=== PATIENT | male | born 1975 | race Caucasian/White ===

== ENCOUNTER 2018-11-13 12:42 | Emergency (ER) | payer BC ==
[2018-11-13 12:52] VITALS: BP 173/87
--- NOTE | 2018-11-13 13:22 | ER Document Report ---
ED Medical Screen (RME) - General Chief Complaint: Fall Injury Stated Complaint: FALL/FACIAL LACERATIONS Time Seen by Provider: 11/13/18 13:18 Mode of Arrival: Ambulatory Information source: Patient Notes: 42-year-old male presented to ED for laceration to the left side of his face just beside his eye. He states he got up this morning and tripped over some close said the dresser hit his forehead on the dresser causing a laceration. He states it was about 730 this morning. He is alert oriented respirations regular and unlabored denies any loss of consciousness no nausea or vomiting. Bleeding is under control I have greeted and performed a rapid initial assessment of this patient. A comprehensive ED assessment and evaluation of the patient, analysis of test results and completion of medical decision making process will be conducted by an additional ED providers. Dictation of this chart was performed using voice recognition software; therefore, there may be some unintended grammatical errors. TRAVEL OUTSIDE OF THE [place] IN LAST 30 DAYS: No - Related Data Allergies/Adverse Reactions: Penicillins Allergy (Verified 11/13/18 12:46) Sulfa (Sulfonamide Antibiotics) Allergy (Verified 11/13/18 12:46) Past Medical History - Social History Frequency of alcohol use: Social Drug Abuse: None Renal/ Medical History: Denies: Hx Peritoneal Dialysis Physical Exam - Vital signs Vitals: Temp Pulse Resp BP Pulse Ox 98 F 82 18 173/87 H 98 11/13/18 12:51 11/13/18 12:51 11/13/18 12:51 11/13/18 12:51 11/13/18 12:51 Course - Vital Signs Vital signs: Temp Pulse Resp BP Pulse Ox 98 F 82 18 173/87 H 98 11/13/18 12:51 11/13/18 12:51 11/13/18 12:51 11/13/18 12:51 11/13/18 12:51
[2018-11-13] MEDS ORDERED: LIDOCAINE 1% INJ-PF (10 MG/ML) 30 ML SDV INJ ONE (14:54)
[2018-11-13] MEDS ORDERED: ACETAMINOPHEN 325 MG TABLET PO ONE (14:54)
[2018-11-13] MEDS ORDERED: LIDOCAINE 1.5%/EPINEPHRINE INJ-PF 30 ML SDV INJ ONE (14:56)
--- NOTE | 2018-11-13 15:04 | ER Document Report ---
HPI - HPI Patient complains to provider of: Laceration Time Seen by Provider: 11/13/18 13:18 Pain Level: 3 Context: Patient is a 43-year-old male presents to the emergency department for a laceration over his left eyebrow. Patient states this morning he tripped and fell onto his dresser. States he fell and hit his head on his dresser. Patient denies any loss of consciousness or vomiting. Denying any blurred vision or change in vision. Patient states is a minor headache but it more so hurts right over the cut. Patient states his last tetanus immunization was a year ago Past medical history: Hypertension, gout, anxiety Medications: Lisinopril, allopurinol, Soma, Xanax Allergies: Sulfa, penicillin - DERM Skin Color: Normal Past Medical History - General Information source: Patient - Social History Smoking Status: Never Smoker Frequency of alcohol use: Social Drug Abuse: None Family History: Reviewed & Not Pertinent Patient has suicidal ideation: No Patient has homicidal ideation: No Renal/ Medical History: Denies: Hx Peritoneal Dialysis Vertical Provider Document - CONSTITUTIONAL Agree With Documented VS: Yes Notes: GENERAL: Alert, interacts well. No acute distress. HEAD: Normocephalic, pain palpation left zygomatic arch, erythema noted EYES: Pupils equal, round, and reactive to light. Extraocular movements intact and painless. No proptosis noted ENT: Oral mucosa moist, tongue midline. Nares patent, no nasal septal hematoma, TM's intact, no hemotympanum noted bilaterally NECK: Full range of motion. Supple. Trachea midline. LUNGS: Clear to auscultation bilaterally, no wheezes, rales, or rhonchi. No respiratory distress. HEART: Regular rate and rhythm. No murmur ABDOMEN: Soft, non-tender. Non-distended. Bowel sounds present in all 4 quadrants. EXTREMITIES: Moves all 4 extremities spontaneously. No edema, normal radial and dorsalis pedis pulses bilaterally. No cyanosis. BACK: no cervical, thoracic, lumbar midline tenderness. No saddle anesthesia, normal distal neurovascular exam. NEUROLOGICAL: Alert and oriented x3. Normal speech. cranial nerves II through XII grossly intact PSYCH: Normal affect, normal mood. SKIN: Warm, dry, normal turgor. Patient does have bruising around the left eye, no swelling of upper or lower lid noted. Laceration x2 noted, see procedure note. - INFECTION CONTROL TRAVEL OUTSIDE OF THE [place] IN LAST 30 DAYS: No Course - Re-evaluation Re-evalutation: 11/13/18 15:01 Laceration repaired with no complications. Patient tolerated well. See procedure note for details. No antibiotics needed at this time. Patient states he is up-to-date on immunizations. Patient stable for discharge. 11/13/18 16:[address] 11/13/18 15:42 IMPRESSION: Left preseptal orbital soft tissue swelling. No facial fracture or left globe injury. No retrobulbar hematoma - Vital Signs Vital signs: Temp Pulse Resp BP Pulse Ox 98 F 82 18 173/87 H 98 11/13/18 12:51 11/13/18 12:51 11/13/18 12:51 11/13/18 12:51 11/13/18 12:51 Procedures - Laceration/Wound Repair left eyebrow Wound length (cm): 3 Wound's Depth, Shape: Superficial, Linear Laceration pre-procedure: Sterile PPE donned, Sterile drapes applied, Shur-Clens applied Anesthetic type: 1% Lidocaine w/epi Volume Anesthetic (mLs): 5 Wound explored: Clean Irrigated w/ Saline (mLs): 500 Wound Debrided: Minimal Wound Repaired With: Sutures Suture Size/Type: 5:0, Vicryl Number of Sutures: 4 Post-procedure wound care: Sterile dressing applied Post-procedure NV exam normal: Yes Complications: No left forehead Wound length (cm): 1 Wound's Depth, Shape: Superficial, Linear Laceration pre-procedure: Sterile PPE donned Anesthetic type: 1% Lidocaine w/epi Volume Anesthetic (mLs): 2 Wound explored: Clean Irrigated w/ Saline (mLs): 500 Wound Debrided: Minimal Wound Repaired With: Sutures Suture Size/Type: 5:0, Vicryl Number of Sutures: 2 Post-procedure wound care: Sterile dressing applied Post-procedure NV exam normal: Yes Complications: No Adult Head Front/Back picture: 1 - laceration Discharge - Discharge Clinical Impression: Laceration Condition: Stable Disposition: HOME, SELF-CARE Instructions: Laceration Care ([facility]) Additional Instructions: As we discussed you have been seen and treated in the emergency department for a laceration above your left eyebrow. The sutures I have placed are absorbable. This means they do not need to be taken out. For the next 24 hours he should keep the wound clean and dry. After that you can shower like normal but do not submerge the wound. No swimming pools, no hot tubs. Please also look out for signs of infection. This would be redness, swelling, discharge from the wound. Please follow-up with your primary care provider return to the emergency room for any concerns. Forms: Return to Work Referrals: JAIME EBAVER PA-C [Primary Care Provider] - Follow up as needed
--- NOTE | 2018-11-13 16:11 | RADIOLOGY REPORT (SQ) ---
EXAM DESCRIPTION: CT FACIAL AREA WITHOUT COMPLETED DATE/TIME: 11/13/2018 4:02 pm REASON FOR STUDY: left facial trauma COMPARISON: None. TECHNIQUE: Noncontrasted images through the facial bones and orbits windowed for bone and soft tissu e. Additional coronal and sagittal reconstructed images reviewed. All images stored on PACS. All CT scanners at this facility use dose modulation, iterative reconstruction, and/or weight based d osing when appropriate to reduce radiation dose to as low as reasonably achievable (ALARA). [facility]: Dose Right [facility]: CareDose [facility]: Dose Right [facility]: Teradose 4D [facility]: [employer] RADIATION DOSE: CT Rad equipment meets quality standard of care and radiation dose reduction techniq ues were employed. CTDIvol: 30.4 mGy. DLP: 583 mGy-cm. mGy. LIMITATIONS: None. FINDINGS: FACIAL BONES: No fracture or bone lesion. ORBITS: Intact. No fracture. Symmetric intact globes and retroorbital soft tissues. PARANASAL SINUSES: Clear. No significant mucosal thickening, mass or fluid. No nasal polyps. Maxill kade sinus outlets are patent. SOFT TISSUES: Left preseptal orbital soft tissue swelling INFERIOR BRAIN: Limited view. No acute findings. OTHER: No other significant finding. IMPRESSION: Left preseptal orbital soft tissue swelling. No facial fracture or left globe injury. No retrobulbar hematoma TECHNICAL DOCUMENTATION: JOB ID: [id number] Quality ID # [id number]: Final reports with documentation of one or more dose reduction techniques (e.g., Au tomated exposure control, adjustment of the mA and/or kV according to patient size, use of iterative reconstruction technique) 2010 [employer]- All Rights Reserved Reading location - IP/workstation name: [email or web address]
== END 2018-11-13 17:06 | disposition home or self-care (01) ==
LOC: ER 12:42
DX: S01.112A Laceration without foreign body of left eyelid and periocular area, initial encounter (principal); W01.190A Fall on same level from slipping, tripping and stumbling with subsequent striking against furniture, initial encounter; I10 Essential (primary) hypertension; F41.9 Anxiety disorder, unspecified; Z88.2 Allergy status to sulfonamides; Z88.0 Allergy status to penicillin
CPT/HCPCS: 99283; 70486; 12013; J3490